=== PATIENT | male | born 1970 | race Hispanic/Latino ===

== ENCOUNTER → 2020-05-17 12:37 | Outpatient (REF) | payer BC, SELFPAY | LOC: ANHLAB 12:37 | PROVIDERS: PCP Family Medicine; Visit Provider Surgery Plastic and Reconstructive Surgery | DX: R22.9 Localized swelling, mass and lump, unspecified (principal) | CPT/HCPCS: 88304 ==

== ENCOUNTER 2022-08-11 08:12 | Outpatient (CLI) | payer BC, SELFPAY ==
--- NOTE | ~2022-08-11 | XR_ITS ---
EXAMINATION: XR shoulder LT min 2V, XR shoulder RT min 2V DATE: 08/11/2022 08:39 INDICATION: Bilateral nontraumatic shoulder pain TECHNIQUE: 1. AP internally and externally rotated, AP oblique externally rotated and axillary views of the left shoulder were obtained. 2. AP internally and externally rotated, AP oblique externally rotated and axillary views of the righ t shoulder were obtained. COMPARISON: None FINDINGS: Normal alignment at both shoulders. No fracture.Mild bilateral acromioclavicular and minimal glenohu meral osteoarthritis. Bilateral small subacromial spurs. Irregular cortical contour along the greater tuberosities likely combination of mild hypertrophic and cystic changes which can be seen with chron ic rotator cuff disease. Small bone island at the left humeral head. Visualized portion of the lungs are clear. Soft tissues are unremarkable. IMPRESSION: 1. Mild bilateral acromioclavicular and minimal glenohumeral osteoarthritis. 2. Bilateral small subacromial spurs and irregular cortical contour along the greater tuberosities, t he latter which can be seen with chronic rotator cuff disease. Reviewed, dictated and finalized at location B. IMPRESSION: 1. Mild bilateral acromioclavicular and minimal glenohumeral osteoarthritis. 2. Bilateral small subacromial spurs and irregular cortical contour along the g reater tuberosities, the latter which can be seen with chronic rotator cuff dis ease.
== END 2022-08-11 08:13 | disposition home or self-care (01) ==
PROVIDERS: PCP Family Medicine; Visit Provider Physician Assistant
DX: M19.011 Primary osteoarthritis, right shoulder (principal); M19.012 Primary osteoarthritis, left shoulder
CPT/HCPCS: 73030